=== PATIENT | female | born 1955 | race Caucasian/White ===

== ENCOUNTER → 2023-07-17 | Outpatient (CLI) | payer MEDICARE, BC ==
[2023-07-17 11:03] LABS: HCT 37.9 % (37.2-46.3); HGB 12.6 g/dL (12.0-15.0); MCHC 33.2 g/dL (32.0-37.0); MCV 87.3 FL (80.0-97.0); Mean Platelet Volume 10.2 FL (9.5-12.2); NRBC Per 100 WBC 0 X 10*3/uL (0.00-0.01); Platelet Count 272 X 10*3/uL (140-440); RBC 4.34 X 10*6/uL (4.10-5.20); RDW 13.4 % (11.5-14.5); WBC 5.71 X 10*3/uL (4.50-10.00)
[2023-07-17 15:04] LABS: Blood Urea Nitrogen 13.6 mg/dL (9.0-27.0); Carbon Dioxide 25.3 mmol/L (21.6-31.8); Chloride 106 mmol/L (96-109); Potassium 4.3 mmol/L (3.5-5.5); Sodium 143 mmol/L (135-145)
== END | disposition home or self-care (01) ==
LOC: LABWHC1 08:00
PROVIDERS: ATTEND Internal Medicine Clinical Cardiac Electrophysiology
DX: Z01.812 Encounter for preprocedural laboratory examination (principal); I48.0 Paroxysmal atrial fibrillation
CPT/HCPCS: 36415; 80051; 82565; 84520; 85027

== ENCOUNTER → 2023-08-05 | Outpatient (CLI) | payer MEDICARE, BC ==
--- NOTE | 2023-08-06 10:43 | MM ---
Reason for Exam: Screening (asymptomatic). Last mammogram was performed 2 year(s) and 2 month(s) ago. Patient History: Menarche at age 13. First Full-Term at age 28. Postmenopausal. Risk Values: Sharon 5 year model risk: 1.9%. NCI Lifetime model risk: 6.4%. Prior Study Comparison: 05/06/2018 Bilateral Screening Mammogram, [facility]. 01/25/2020 Bilateral Screening Mammogram, [facility]. 05/10/2021 Bilateral Screening Mammogram, [facility]. 06/05/2021 Right Diagnostic Mammogram, [facility]. Tissue Density: The breast tissue is heterogeneously dense. This may lower the sensitivity of mammography. Findings: Analyzed By CAD. There is no suspicious group of microcalcifications or new suspicious mass. Overall Assessment: Negative, BI-RAD 1 Management: Screening Mammogram of both breasts in [address] [facility] will attempt to contact patient to return for supplemental views and ultrasound if indicated. Patient should continue monthly self-breast exams. A clinical breast exam by your physician is recommended on an annual basis. This exam should not preclude additional follow-up of suspicious palpable abnormalities. Note on Sharon scores and lifetime risk: 1. A Sharon score greater than 3% is considered moderate risk. If this is the case, consider specialist referral to assess eligibility for a risk reducing agent. 2. If overall lifetime risk for the development of breast cancer is 20% or higher, the patient may qualify for future screening with alternating mammogram and breast MRI. Electronically signed and approved by: Garth Guerrier DO
== END | disposition home or self-care (01) ==
LOC: RADMAMWWP 16:04
PROVIDERS: ATTEND Internal Medicine
DX: Z12.31 Encounter for screening mammogram for malignant neoplasm of breast (principal); Z78.0 Asymptomatic menopausal state
CPT/HCPCS: 77063; 77067

== ENCOUNTER 2023-09-16 10:04 | Day surgery (SDC) | payer MEDICARE, BC ==
[2023-09-16] MEDS: SODIUM CHLORIDE 0.9% 1,000 ML IV ONE (10:19)
[2023-09-16 10:47] LABS: Basophils % (A) 1 %; Eosinophils # (A) 0.3 k/uL (0-0.7); Eosinophils % (A) 5 %; HCT 40.5 % (34.0-46.0); HGB 13.6 gm/dL (11.4-16.0); Lymphocytes # (A) 2.1 k/uL (1.0-4.8); Lymphocytes % (A) 32 %; MCHC 33.5 g/dL (31.0-37.0); MCV 89.4 fL (80.0-100.0); Mean Platelet Volume 7.5; Monocytes # (A) 0.3 k/uL (0-1.0); Monocytes % (A) 4 %; Neutrophils # (A) 3.7 k/uL (1.3-7.7); Neutrophils % (A) 56 %; Platelet Count 272 k/uL (150-450); RBC 4.53 m/uL (3.80-5.40); RDW 13.9 % (11.5-15.5); WBC 6.6 k/uL (3.8-10.6)
[2023-09-16 11:06] LABS: ALT 20 U/L (4-34); AST 23 U/L (14-36); African American GFR (CKD) >90 (>60 ml/min/1.73 sqM); Albumin 4.4 g/dL (3.5-5.0); Anion Gap 8 mmol/L; Blood Urea Nitrogen 24 mg/dL (7-17); Calcium 9.4 mg/dL (8.4-10.2); Carbon Dioxide 25 mmol/L (22-30); Chloride 108 mmol/L (98-107); Glucose 93 mg/dL (74-99); Non-African American GFR(CKD) 89 (>60 ml/min/1.73 sqM); Sodium 141 mmol/L (137-145); Total Protein 7.2 g/dL (6.3-8.2)
[2023-09-16 11:09] LABS: Alkaline Phosphatase 49 U/L (38-126); Potassium 4.5 mmol/L (3.5-5.1); Total Bilirubin 0.8 mg/dL (0.2-1.3)
[2023-09-16] MEDS ORDERED: HEPARIN SODIUM,PORCINE 10,000 UNIT/ML 1 ML VIAL ONE (11:49)
[2023-09-16] MEDS ORDERED: PROPOFOL 10 MG/ML 20 ML VIAL IV ONE (11:49)
[2023-09-16] MEDS ORDERED: ePHEDrine 50 MG/ML 1 ML VIAL ONE (11:49)
[2023-09-16] MEDS ORDERED: SUCCINYLCHOLINE CHLORIDE 200 MG/10 ML VIAL IV ONE (11:49)
[2023-09-16] MEDS ORDERED: fentaNYL (PF) 50 MCG/ML 2 ML AMP ONE (11:49)
[2023-09-16] MEDS ORDERED: MIDAZOLAM 2 MG/2 ML VIAL ONE (11:49)
[2023-09-16] MEDS ORDERED: LIDOCAINE 1% INJ 10MG/ML (20 ML MDV) ONE ×2 (11:49→12:06)
--- NOTE | 2023-09-16 11:57 | P.HPCAR ---
History of Present Illness This is Dr. Royal dictating an H/P on this patient The patient was interviewed and examined IMPRESSION / ASSESSMENT: Paroxysmal symptomatic atrial fibrillation with RVR, lasting 4 to 5 hours Underlying sick sinus syndrome, precluding drug therapy PLAN: A-fib ablation with PVI Continue Eliquis HPI 67-year-old female with recurrent palpitations lasting 4 to 5 hours Episodes are becoming more more frequent No chest discomfort no loss of consciousness She has a history of sinus bradycardia and therefore AV gallo blocking drugs and antiarrhythmic drugs have been avoided She is on Eliquis 5 mg twice daily Denies any chest discomfort orthopnea PND syncope recently ROS: No fever chills or rigors, no cough, phlegm or expectoration, no nausea, vomiting or diarrhea, no hematuria, dysuria, no musculoskeletal complaints, no strokes or seizures, no skin lesions. EXAMINATION: 138/66 mmHg pulse rate 47 beats a minute afebrile Breath sounds are clear no rhonchi, crackles Heart sounds S1-S2 normal no murmurs No lower extremity edema No JVD REVIEW OF LABS, ECG & MEDICAL DATA Hemoglobin 13.6, white count 6.6 Platelet count 272,000 Sodium 141, potassium 4.5, BUN 24 and creatinine 0.7 TSH 2.2 Physical Exam Vitals: Vital Signs Temp Pulse Resp BP Pulse Ox 09/16/23 10:22 97.0 F L 47 L 16 138/66 99 Intake and Output 09/15/23 09/16/23 09/16/23 22:59 06:59 14:59 Other: Weight 70.9 kg Past Medical History Past Medical History: Atrial Fibrillation, Atrial Flutter Additional Past Medical History / Comment(s): see Dr Royal's H & P History of Any Multi-Drug Resistant Organisms: None Reported Past Surgical History: Orthopedic Surgery Additional Past Surgical History / Comment(s): carpal tunnel, shoulder surgery, Past Anesthesia/Blood Transfusion Reactions: No Reported Reaction Smoking Status: Former smoker - Past Family History Father Family Medical History: Cancer Additional Family Medical History / Comment(s): lung Mother Family Medical History: Myocardial Infarction (NH) Physical Examination Vital Signs Temp Pulse Resp BP Pulse Ox 09/16/23 10:22 97.0 F L 47 L 16 138/66 99 Intake and Output 09/15/23 09/16/23 09/16/23 22:59 06:59 14:59 Other: Weight 70.9 kg Results 09/16/23 10:25 09/16/23 10:25 Cardiac Enzymes 09/16/23 Range/Units 10:25 AST 23 (14-36) U/L CBC 09/16/23 Range/Units 10:25 WBC 6.6 (3.8-10.6) k/uL RBC 4.53 (3.80-5.40) m/uL Hgb 13.6 (11.4-16.0) gm/dL Hct 40.5 (34.0-46.0) % Plt Count 272 (150-450) k/uL Comprehensive Metabolic Panel 09/16/23 Range/Units 10:25 Sodium 141 (137-145) mmol/L Potassium 4.5 (3.5-5.1) mmol/L Chloride 108 H (98-107) mmol/L Carbon Dioxide 25 (22-30) mmol/L BUN 24 H (7-17) mg/dL Creatinine 0.71 (0.52-1.04) mg/dL Glucose 93 (74-99) mg/dL Calcium 9.4 (8.4-10.2) mg/dL AST 23 (14-36) U/L ALT 20 (4-34) U/L Alkaline Phosphatase 49 (38-126) U/L Total Protein 7.2 (6.3-8.2) g/dL Albumin 4.4 (3.5-5.0) g/dL Current Medications Generic Name Dose Route Start Last Admin Trade Name Freq PRN Reason Stop Dose Admin Sodium Chloride 1,000 mls @ 20 mls/hr 09/16/23 05:57 Saline 0.9% IV 10/16/23 05:58 .Q24H GABI Intake and Output 09/15/23 09/16/23 09/16/23 22:59 06:59 14:59 Other: Weight 70.9 kg Patient Weight 09/17/23 06:59 Weight 70.9 kg 09/16/23 10:25 09/16/23 10:25
[2023-09-16] MEDS: LIDOCAINE 1% INJ 10MG/ML (20 ML MDV) SQ ONE (12:23)
[2023-09-16] MEDS: HEPARIN SOD,PORK IN 0.45% NACL 25,000 UNIT in 0.45% NACL 1 250ML.BAG IV ONE (13:53)
[2023-09-16] MEDS: IOPAMIDOL-370 100ML BTL INJ ONE (13:54)
[2023-09-16] MEDS ORDERED: ACETAMINOPHEN TAB 325 MG TAB PO PRN (14:18)
--- NOTE | 2023-09-16 14:28 | P.EPPROC ---
- EP Procedure Note Electrophysiology Procedure Note: PROCEDURE A. fib ablation with PVI DIAGNOSIS Paroxysmal atrial fibrillation, symptomatic, with underlying sick sinus syndrome RESULT No left atrial appendage mass seen on intracardiac echo, normal LV function Successful A. fib ablation/pulmonary vein isolation of all veins using cryo-ablation Complete entrance block in all 4 veins confirmed No evidence for phrenic nerve injury Esophageal deflection YES PROCEDURE DETAILS Written informed consent prior to procedure. Patient brought to the EP lab. General anesthesia given. Heparin administered. A city maintained above 300 seconds Both groins prepped and draped per protocol and venous sheaths placed. Esophagus intubated, circa catheter for temperature monitoring an endoscope for possible esophageal deflection. Phrenic nerve monitoring performed. Esophageal temperature monitoring performed. Esophageal deflection performed if circa catheter overlapping with the balloon or circa temperature less than 27.5C Intracardiac echocardiography performed. Pericardium evaluated. Left atrial appendage evaluated. Left atrium evaluated along with pulmonary veins Transseptal catheterization performed under fluoroscopic guidance and intracardiac echo guidance Cryoablation sheath exchanged, balloon catheter along with achieve catheter placed in the left atrium. Pulmonary veins isolated in the following sequence: Left superior pulmonary vein followed by left inferior pulmonary vein, followed by right inferior pulmonary vein and lastly right superior pulmonary vein. Phrenic nerve stimulation along with capture thresholds within the SVC and right superior pulmonary vein to identify the phrenic nerve proximity to the cryo- b alloon. Pulmonary veins isolated and confirmed with entrance and exit block. Phrenic nerve integrity confirmed at the end of the procedure Diagnostic catheters for the high right atrium, His bundle, coronary sinus placed. LA and RA pressures recorded RA pressure: 15/7/11 LA pressure: 21/7/14 Diagnostic EP study with coronary sinus pacing and recording Baseline measurements: Sinus cycle length 30 and 34 ms, OH interval 136 ms, QRS 118 ms and QT 480 ms AH 103 ms and HV interval 37 milliseconds Burst stimulation performed from 400 down to 200 from the high right atrium Burst stimulation performed from the coronary sinus from 400 ms down to 200 ms No inducible atrial fibrillation post PVI Venous sheaths were removed and hemostasis assured with a closure device. Patient extubated and transferred to recovery PROCEDURES PERFORMED Diagnostic EP study CS pacing and recording Left and right transseptal catheterization Catheter the mapping of the tachycardia Intracardiac echocardiography Pulmonary vein isolation with transseptal and comprehensive EPS, [id number]
[2023-09-16] MEDS: ACETAMINOPHEN IV (For NPO) 1,000 MG in EMPTY BAG 1 BAG IVPB ONE (14:55)
[2023-09-16] MEDS: SODIUM CHLORIDE 0.9% 1,000 ML IV SCH (17:16)
[2023-09-16 19:54] VITALS: RESP 16
[2023-09-16] MEDS: APIXABAN 5 MG TAB PO SCH (20:01)
[2023-09-17 03:31] VITALS: TEMP 98.1
[2023-09-17 08:05] VITALS: BP 117/64; PULSE 67
--- NOTE | 2023-09-17 12:29 | P.DS ---
Providers Attending physician: Robby Royal [facility] Course: Patient is resting comfortably in bed No dizziness lightheadedness or palpitations No chest pain Groins of healed well Minimal pain in tenderness On examination her blood pressure is 111/72 mmHg pulse rate in the 70s sinus mechanism Heart sounds S1-S2 normal Breath sounds are clear without rhonchi or crackles No JVD Impression Paroxysmal atrial fibrillation, symptomatic Underlying sick sinus syndrome with inability to use any drugs for management of atrial fibrillation Status post successful pulmonary vein isolation of all 4 veins Plan Uninterrupted anticoagulation for 3 months Follow-up with Dr. Patrick in the next 7 days Plan - Discharge Summary Discharge Rx Participant: No New Discharge Prescriptions: Continue Apixaban [Eliquis] 5 mg PO BID Discharge Medication List Apixaban [Eliquis] 5 mg PO BID 07/25/23 [History] Follow up Appointment(s)/Referral(s): Sebas Patrick DO [STAFF PHYSICIAN] - 09/20/23 Zia Newton DO [Primary Care Provider] - 1 Week Patient Instructions/Handouts: Cardiac Ablation (DC) Activity/Diet/Wound Care/Special Instructions: Post EP study - Ablation instructions 1. Keep access sites dry for 2 days. 2. No heavy lifting or straining for 2 days. 3. Avoid bending the hips repeatedly for 2 days. 4. You may go up and down stairs slowly Call if the following is noted 1. Bleeding, increasing swelling or pain at the access sites. 2. Increasing chest discomfort, especially upon taking a deep breath. 3. Increasing shortness of breath, at rest or with exertion. 4. Undue cough / phlegm 5. Difficulty or pain while swallowing. 6. Pain or change in color in the extremities. 7. Fever, chills, rigors. 8. Increasing headache or neurologic symptoms. 9. Dizziness, fainting, palpitations Continue Eliquis 5 mg twice daily uninterrupted Discharge Disposition: HOME SELF-CARE
== END 2023-09-17 12:23 | disposition home or self-care (01) ==
LOC: CATHEP 10:04 → 6NMEDSUR 13:50 → CATHEP 09-17 12:23
PROVIDERS: ATTEND Internal Medicine Clinical Cardiac Electrophysiology
DX: I48.0 Paroxysmal atrial fibrillation (principal); I49.5 Sick sinus syndrome; Z79.01 Long term (current) use of anticoagulants; Z87.891 Personal history of nicotine dependence; Z82.49 Family history of ischemic heart disease and other diseases of the circulatory system; Z79.899 Other long term (current) drug therapy
CPT/HCPCS: 93656; 86900; 86901; 80053; 84443; 85025; 86850; C1894; C1769 ×3; C1760; C1730 ×2; C1893; C1733; C1766; J2001; J0131; Q9967; J1644

== ENCOUNTER → 2025-01-13 | Outpatient (CLI) | payer MEDICARE, BC ==
--- NOTE | 2025-01-13 10:51 | CT ---
EXAMINATION TYPE: CT abdomen pelvis wo con DATE OF EXAM: 01/13/2025 8:26 AM COMPARISON: None. CLINICAL INDICATION: Female, 69 years old with history of R31.29 OTHER MICROSCOPIC HEMATURIA; LT isabella e flank pain. Hx renal stones. TECHNIQUE: CT of the abdomen and pelvis without IV contrast. Sagittal and coronal reformats were crea ronna on a separate workstation. CT DLP: 371 mGycm, Automated exposure control for dose reduction was used. FINDINGS: LOWER CHEST: Unremarkable ABDOMEN LIVER: 2.5 cm right hepatic dome cyst. GALLBLADDER AND BILE DUCTS: Unremarkable. PANCREAS: Unremarkable. SPLEEN: Anterior splenule. ADRENAL GLANDS: Unremarkable. KIDNEYS AND URETERS: 5 calcifications left kidney, largest measuring 1.1 cm. No hydronephrosis on eit her side and no ureteral stone identified. PELVIS BLADDER: No evidence for wall thickening or mass given limitations of exam. REPRODUCTIVE: Uterus anteverted. Both ovaries are visualized. No abnormal fluid collection in the pel vis. Pelvic phleboliths. ABDOMEN & PELVIS STOMACH AND BOWEL: Tiny hiatal hernia. No evidence of bowel obstruction. Moderate stool burden. No pe ricolonic inflammatory change. PERITONEUM/RETROPERITONEUM: No evidence of pneumoperitoneum or free fluid. VASCULATURE: Mild atherosclerotic calcification MUSCULOSKELETAL: Small left paracentral disc herniations at L3-L4 and L5-S1. LYMPH NODES: No gross evidence for lymphadenopathy. SOFT TISSUE/ABDOMINAL WALL: Unremarkable IMPRESSION: 1. Left-sided nephrolithiasis. 5 stones are present measuring up to 1.1 cm. No ureteral stone or hyd ronephrosis seen on either side. 2. Tiny hiatal hernia. Small left paracentral disc herniations at L3-4 and L5-S1. Moderate stool veronika en. [facility], , 01/13/2025 10:49 AM
== END | disposition home or self-care (01) ==
LOC: RADCTMAIN 08:05
PROVIDERS: ATTEND Internal Medicine
DX: R31.29 Other microscopic hematuria (principal); N20.0 Calculus of kidney; K44.9 Diaphragmatic hernia without obstruction or gangrene; M51.26 Other intervertebral disc displacement, lumbar region
CPT/HCPCS: 74176

== ENCOUNTER → 2025-02-10 | Outpatient (CLI) | payer MEDICARE, BC ==
--- NOTE | 2025-02-10 13:29 | MM ---
Reason for Exam: Screening (asymptomatic). Last mammogram was performed 1 year(s) and 6 month(s) ago. Patient History: Menarche at age 13. First Full-Term at age 28. Postmenopausal. Risk Values: Sharon 5 year model risk: 1.9%. NCI Lifetime model risk: 5.9%. Prior Study Comparison: 05/10/2021 Bilateral Screening Mammogram, [facility]. 06/05/2021 Right Diagnostic Mammogram, [facility]. 08/05/2023 Bilateral MG 3D screening mammo w/cad, [facility]. Tissue Density: There are scattered areas of fibroglandular density. Findings: Analyzed By CAD. Right breast: There is no suspicious group of microcalcifications or new suspicious mass. Left breast: There is no suspicious group of microcalcifications or new suspicious mass. Overall Assessment: Negative, BI-RAD 1 Management: Screening Mammogram of both breasts in [address] [facility] will attempt to contact patient to return for supplemental views and ultrasound if indicated. Patient should continue monthly self-breast exams. A clinical breast exam by your physician is recommended on an annual basis. This exam should not preclude additional follow-up of suspicious palpable abnormalities. Note on Sharon scores and lifetime risk: 1. A Sharon score greater than 3% is considered moderate risk. If this is the case, consider specialist referral to assess eligibility for a risk reducing agent. 2. If overall lifetime risk for the development of breast cancer is 20% or higher, the patient may qualify for future screening with alternating mammogram and breast MRI. [facility], , 02/10/2025 1:25 PM. Electronically signed and approved by: Garth Guerrier DO
--- NOTE | 2025-02-11 12:49 | BD ---
EXAMINATION TYPE: Axial Bone Density DATE OF EXAM: 02/10/2025 CLINICAL HISTORY: 69 years old Female. ICD-10 CODE: Z13.820 SCREENING FOR OSTEOPOROSIS , Additional History: Height: 67 in Weight: 155 lbs FRAX RISK QUESTIONS: History of Fracture in Adulthood: lt hand fx age 35 MEDICATIONS: Osteoporosis Medications: not now Which medication: Fosamax How Lon year EXAM MEASUREMENTS: Bone mineral densitometry was performed using the Vdancer System. Bone mineral density as measured about the Lumbar spine is: ----- L1-L4(G/cm2): 0.912 T Score Values are as follows: ----- L1: -1.6 ----- L2: -2.2 ----- L3: -2.0 ----- L4: -3.1 ----- L1-L4: -2.2 Z Score Values are as follows: ----- L1: -0.1 ----- L2: -0.7 ----- L3: -0.5 ----- L4: -1.6 ----- L1-L4: -0.8 Bone mineral density baseline Bone mineral density about the R hip (g/cm2): 0.846 Bone mineral density about the L hip (g/cm2): 0.890 T Score values are as follows: -----R Neck: -1.6 -----L Neck: -1.6 -----R Total: -1.3 -----L Total: -0.9 Z Score values are as follows: -----R Neck: 0.0 -----L Neck: 0.0 -----R Total: 0.0 -----L Total: 0.4 Bone mineral density baseline FRAX%s: The graph provided illustrates a 15.9% chance for a major osteoporotic fx and a 2.3% chance f or the hips probability for fx in 10 years time. IMPRESSION: Osteopenia (T Score between -2.5 and -1). There is slightly increased risk of fracture and the patient may be considered for treatment. Re-Screen 2-5 years. NOTE: T-SCORE=SD OF THE YOUNG ADULT MEAN. [facility], , 02/11/2025 12:47 PM
== END | disposition home or self-care (01) ==
LOC: RADMAMWWP 13:08
PROVIDERS: ATTEND Internal Medicine
DX: Z12.31 Encounter for screening mammogram for malignant neoplasm of breast (principal); Z13.820 Encounter for screening for osteoporosis; R31.29 Other microscopic hematuria; M85.89 Other specified disorders of bone density and structure, multiple sites; R92.323 Mammographic fibroglandular density, bilateral breasts; Z78.0 Asymptomatic menopausal state
CPT/HCPCS: 77063; 77067; 77080